=== PATIENT | female | born 1945 ===

== ENCOUNTER 2021-01-05 07:40 | Outpatient (REF) | payer MEDICARE, SELFPAY ==
[2021-01-05 08:54] LABS: Alanine Aminotransferase 18 U/L (0-31); Alkaline Phosphatase 53 U/L (39-117); Anion Gap 13 (12-20); Aspartate Amino Transferase 32 U/L (5-31); Bilirubin Total 0.5 mg/dL (0.0-1.0); Blood Urea Nitrogen 16 mg/dL (9-16); Calcium 9.3 mg/dL (8.4-10.2); Carbon Dioxide 29 mmol/L (22-29); Chloride 104 mmol/L (96-108); Estimated Glomerular Filt Rate > 60; Glucose Random 99 mg/dL (60-115); Potassium 4.5 mmol/L (3.3-5.1); Sodium 141 mmol/L (135-145); Total Protein 7.5 g/dL (6.5-8.0)
[2021-01-05 09:34] LABS: Free T4 (Free Thyroxine) 1.12 ng/dL (0.71-1.85)
[2021-01-05 09:53] LABS: Thyroid Stimulating Hormone 1.78 uIU/mL (0.32-4.0)
== END 2021-01-05 07:41 | disposition home or self-care (01) ==
LOC: HO.LAB 07:40
PROVIDERS: Visit Provider Internal Medicine
DX: E03.9 Hypothyroidism, unspecified (principal)
CPT/HCPCS: 36415; 80053; 84439; 84443

== ENCOUNTER 2022-04-12 08:42 | Outpatient (REF) | payer MEDICARE, SELFPAY ==
[2022-04-12 09:00] LABS: MANUAL DIFF FLAG NO
[2022-04-12 09:42] LABS: Basophils Percent Auto 0.4 % (0-2); Eosinophils Absolute Auto 0.1 X10*3/uL (0.0-0.4); Eosinophils Percent Auto 1.3 % (0-4); Hemoglobin 12.2 g/dl (12.0-16.0); Imm Gran Abs Auto 0.01 X10*3/uL (0.00-0.03); Imm Gran Pct Auto 0.2 % (0.0-0.4); Lymphocytes Absolute Auto 1.5 X10*3/uL (1.2-4.9); Lymphocytes Percent Auto 34.1 % (20-40); Mean Corpuscular Hemoglobin 30.3 pg (27.0-33.0); Mean Corpuscular Volume 91.8 fL (80.0-98.0); Mean Platelet Volume 9.9 fL (9.4-12.3); Monocytes Absolute Auto 0.4 X10*3/uL (0.1-1.2); Monocytes Percent Auto 8.4 % (2-11); Neutrophils Absolute Auto 2.5 x10*3/uL (2.0-8.3); Neutrophils Percent Auto 55.6 % (45-73); Platelet Count 220 X10*3/uL (160-400); Red Blood Count 4.03 X10*6/uL (4.20-5.50); Red Cell Distribution Width 13.1 % (11.0-16.0); White Blood Count 4.5 X10*3/uL (4.8-10.8)
[2022-04-12 10:12] LABS: Alanine Aminotransferase 24 U/L (0-31); Albumin Level 4.2 g/dL (3.5-5.0); Alkaline Phosphatase 56 U/L (39-117); Anion Gap 15 (12-20); Aspartate Amino Transferase 28 U/L (5-31); Bilirubin Total 0.4 mg/dL (0.0-1.0); Blood Urea Nitrogen 14 mg/dL (9-16); Calcium 9.2 mg/dL (8.4-10.2); Carbon Dioxide 29 mmol/L (22-29); Chloride 102 mmol/L (96-108); Cholesterol 241 mg/dL; Estimated Glomerular Filt Rate > 60; Glucose Fasting 108 mg/dL (60-99); HDL Cholesterol 82 mg/dL; LDL Cholesterol Calculated 146 mg/dl; Potassium 4.2 mmol/L (3.3-5.1); Sodium 142 mmol/L (135-145); Total Protein 7.2 g/dL (6.5-8.0); Triglycerides 68 mg/dL
[2022-04-12 10:35] LABS: Free T4 (Free Thyroxine) 1.25 ng/dL (0.71-1.85); Thyroid Stimulating Hormone 2.37 uIU/mL (0.32-4.0); Vitamin D 25-OH Total 47.7 ng/mL (>30)
[2022-04-12 11:04] LABS: Appearance Urine Cloudy; Color Urine Yellow; Glucose Urine UA Negative (Negative); Leukocyte Esterase Urine Negative (Negative); Nitrite Urine Negative (Negative); PH 8.5 (5.0-9.0); Urine Blood Negative (Negative); Urine Ketones Negative (Negative); Urine Protein Negative (Neg-Trace)
== END 2022-04-12 08:43 | disposition home or self-care (01) ==
LOC: HO.LAB 08:42
PROVIDERS: PCP Internal Medicine; Visit Provider Internal Medicine
DX: Z00.00 Encounter for general adult medical examination without abnormal findings (principal); E03.9 Hypothyroidism, unspecified; E55.9 Vitamin D deficiency, unspecified
CPT/HCPCS: 36415; 80053; 80061; 81003; 82306; 84439; 84443; 85025

== ENCOUNTER 2023-04-13 09:08 | Outpatient (REF) | payer MEDICARE, SELFPAY ==
[2023-04-13 09:30] LABS: MANUAL DIFF FLAG NO
[2023-04-13 10:27] LABS: Basophils Percent Auto 0.3 % (0-2); Eosinophils Absolute Auto 0.1 X10*3/uL (0.0-0.4); Eosinophils Percent Auto 1.2 % (0-4); Hematocrit 37.9 % (37.0-47.0); Hemoglobin 12.5 g/dl (12.0-16.0); Imm Gran Abs Auto 0.01 X10*3/uL (0.00-0.03); Imm Gran Pct Auto 0.2 % (0.0-0.4); Lymphocytes Absolute Auto 1.4 X10*3/uL (1.2-4.9); Lymphocytes Percent Auto 24.4 % (20-40); Mean Corpuscular Hemoglobin 30.8 pg (27.0-33.0); Mean Corpuscular Volume 93.3 fL (80.0-98.0); Mean Platelet Volume 10.2 fL (9.4-12.3); Monocytes Absolute Auto 0.4 X10*3/uL (0.1-1.2); Monocytes Percent Auto 7.6 % (2-11); Neutrophils Absolute Auto 3.8 x10*3/uL (2.0-8.3); Neutrophils Percent Auto 66.3 % (45-73); Platelet Count 226 X10*3/uL (160-400); Red Blood Count 4.06 X10*6/uL (4.20-5.50); Red Cell Distribution Width 12.7 % (11.0-16.0); White Blood Count 5.8 X10*3/uL (4.8-10.8)
[2023-04-13 10:51] LABS: Appearance Urine Clear; Color Urine Yellow; Glucose Urine UA Negative (Negative); Leukocyte Esterase Urine Negative (Negative); Nitrite Urine Negative (Negative); Specific Gravity - Urine <= 1.005 (1.005-1.025); Urine Blood Negative (Negative); Urine Ketones Negative (Negative); Urine Protein Negative (Neg-Trace)
[2023-04-13 11:04] LABS: Anion Gap 13 (12-20); Blood Urea Nitrogen 15 mg/dL (9-16); Carbon Dioxide 28 mmol/L (22-29); Chloride 104 mmol/L (96-108); Estimated Glomerular Filt Rate > 60; Glucose Fasting 96 mg/dL (60-99); Potassium 4.1 mmol/L (3.3-5.1); Sodium 141 mmol/L (135-145)
[2023-04-13 11:05] LABS: Alanine Aminotransferase 22 U/L (0-31); Albumin Level 3.9 g/dL (3.5-5.0); Alkaline Phosphatase 53 U/L (39-117); Aspartate Amino Transferase 32 U/L (5-31); Bilirubin Total 0.4 mg/dL (0.0-1.0); Calcium 9.5 mg/dL (8.4-10.2); Cholesterol 187 mg/dL (<200); HDL Cholesterol 75 mg/dL (>40); LDL Cholesterol Calculated 102 mg/dL (<100); Total Protein 7.6 g/dL (6.5-8.0); Triglycerides 54 mg/dL (<150)
[2023-04-13 11:25] LABS: Free T4 (Free Thyroxine) 0.95 ng/dL (0.71-1.85); Thyroid Stimulating Hormone 4.18 uIU/mL (0.32-4.0); Vitamin D 25-OH Total 40.8 ng/mL (>30)
== END 2023-04-13 09:09 | disposition home or self-care (01) ==
LOC: HO.LAB 09:08
PROVIDERS: PCP Internal Medicine; Visit Provider Internal Medicine
DX: I10 Essential (primary) hypertension (principal); E78.00 Pure hypercholesterolemia, unspecified; E03.9 Hypothyroidism, unspecified; E55.9 Vitamin D deficiency, unspecified; R30.0 Dysuria
CPT/HCPCS: 36415; 80053; 80061; 81003; 82306; 84439; 84443; 85025

== ENCOUNTER 2023-04-19 09:24 | Outpatient (AMB) | payer MEDICARE, SELFPAY ==
[2023-04-19 10:02] VITALS: BP 126/80; PULSE 86; O2SAT 98; BMI 16.9
--- NOTE | 2023-04-19 10:02 | A.OFFPC_ITS ---
Vital Signs 04/19/23 10:02 Height 5 ft 2 in Weight 92 lb 6 oz BMI 16.9 BP 126/80 Blood Pressure Location Lt brachial Position Sitting Pulse 86 Pulse Source Pulse Oximeter Pulse Oximetry (%) 98 Oxygen Delivery Method Room Air Intake Visit Reasons: hyperlipidemia, hypothyroidism [employer] Consultant Required: No Accompanied by: Self / Same As Patient Allergies No Known Allergies Allergy (Verified 04/19/23 10:43) Medication List - Last Reconciled 04/19/23 by Tony Myers MD fluticasone propionate 50 mcg/actuation (Flonase Allergy Relief) 1 spray intranasal DAILY PRN 10 days levothyroxine 75 mcg PO DAILY 90 days loratadine 10 mg PO DAILY PRN 90 days Tobacco use date assessed: 04/19/23 Fall risk assessment: No Falls in past year Last assessed Fall Risk: 04/19/23 Dental Screening Dental Screen Date: 04/19/23 Did you have a dental visit in the last 12 months?: Yes Did you have a dental problem in the last 6 months where you did not have access to dental care?: No Was dental information given to patient?: Patient has dentist HPI hyperlipidemia, hypothyroidism HPI Details Patient comes in for her follow up visit States that she feels okay but she's had some cough and congestion symptoms for the past couple of days She denies any fever or sore throat Denies any headaches or dizziness Denies any chest pains, no SOB No nausea/vomiting, no abdominal pain No change in bowel habits noted Needs her Levothyroxine Rx refilled Had her follow up labs done last week - to discuss her results [facility] Medical History Pure hypercholesterolemia Acquired hypothyroidism Surgical History History of cataract surgery (~08/2021) H/O hand surgery Family History Mother No problems noted. Father Arthritis Social History Housing: House Alcohol intake: never Patient Tobacco Use Status: Never used Tobacco e-Cigarette/Vaping Use: Never Used Second Hand Smoke Exposure: No service: No Current occupational status: retired Cognitive needs: No Hearing needs: No Vision needs: Yes Questionnaire PHQ-9 Over the last 2 weeks, how often have you been bothered by any of the following problems? 1. Little interest or pleasure in doing things: not at all 2. Feeling down, depressed, or hopeless: not at all 3. Trouble falling or staying asleep, or sleeping too much: not at all 4. Feeling tired or having little energy: not at all 5. Poor appetite or overeating: not at all 6. Feeling bad about yourself - or that you are a failure or have let yourself or your family down: not at all 7. Trouble concentrating on things, such as reading the newspaper or watching television: not at all 8. Moving or speaking so slowly that other people could have noticed. Or the opposite - being so fidgety or restless that you have been moving around a lot more than usual: not at all 9. Thoughts that you would be better off or of hurting yourself in some way: not at all Total score: 0 Depression Screening Interpretation: Negative 80507 - PHQ-9 Billing: Yes Source: Developed by Drs. Humberto Sanders, Connie Mock, Boone Grossman and colleagues, with an educational percy from [employer]. Thrive Questionnaire Date Thrive assessed: 04/19/23 I am a: Patient What is your living situation today?: I have a steady place to live Within the past 12 months, did the food you bought not last and you didn't have the money to get more?: Never true Within the past 12 months, did you worry whether your food would run out before you got money to buy more?: Never true Do you have trouble paying for medicines?: No Do you have trouble getting transportation to medical appointments?: No Do you have trouble paying your heating and electricity bill?: No Do you have trouble taking care of your child, family member or friend?: No Do you have trouble with day-to-day activities such as bathing, preparing meals, shopping, managing finances, etc.?: No Are you currently unemployed and looking for a job?: No Are you interested in more education?: No Please select the resources that you would like help with: None Currently or been in a relationship where the following occur: no concerns reported AUDIT C Alcohol Use Questionnaire (AUDIT-C) 1. How often do you have a drink containing alcohol?: Never 3. How often do you have six or more drinks on one occasion?: Never Total Score: 0 Score Reviewed/Action Taken: Yes NATHALIE-7 AMB Questionnaire NATHALIE-7 Date NATHALIE - 7 assessed: 04/19/23 Feeling nervous, anxious, or on edge: 0 = Not at all Not being able to stop or control worryin = Not at all Worrying too much about different things: 0 = Not at all Trouble relaxin = Not at all Being so restless that it is hard to sit still: 0 = Not at all Becoming easily annoyed or irritable: 0 = Not at all Feeling afraid as if something awful might happen: 0 = Not at all Total NATHALIE-7 score (0-4 normal; 5-9 mild; 10-14 moderate; 15-21 severe): 0 Source: Developed by Drs. Humberto Sanders, Connie Mock, Boone Grossman and colleagues, with an educational percy from [employer]. Review of Systems Const Denies chills, Denies fatigue, Denies fever(s) and Denies headache(s) ENT Denies dysphagia, Denies dizziness, Denies otalgia, Denies headache(s), Reports nasal congestion (for the past couple of days), Denies odynophagia, Denies sinus pain, Denies sinus pressure and Denies sore throat Card Denies chest pain, Denies palpitations and Denies dyspnea Resp Reports chest congestion (mild), Reports cough (on and off for the past 2 days), Denies excessive phlegm production, Denies pain with cough, Denies dyspnea and Denies wheezing GI Denies abdominal pain, Denies constipation, Denies dysphagia, Denies heartburn, Denies diarrhea, Denies nausea, Denies odynophagia and Denies vomiting Denies difficulty voiding, Denies nocturia and Denies dysuria Neuro Denies dizziness and Denies headache(s) Endo Denies fatigue and Denies palpitations Aller/Immun Denies wheezing Physical exam (Primary Care) Vital Signs: Last Vital Signs Pulse 86 04/19/23 10:02 BP 126/80 04/19/23 10:02 Pulse Ox 98 04/19/23 10:02 Oxygen Delivery Method Room Air 04/19/23 10:02 BMI result Body Mass Index 16.9 Tobacco/Smoking Status: Tobacco use Status Tobacco use date assessed 04/19/23 04/19/23 10:05 Patient Tobacco Use Status Never used Tobacco 04/19/23 10:05 e-Cigarette/Vaping Use Never Used 04/19/23 10:05 PHQ-9: PHQ-9 Score PHQ-9: Total score 0 04/19/23 10:43 Depression Screening Interpretation: Negative Thrive Assessment: Date of Thrive Assessment Date Thrive assessed 04/19/23 04/19/23 10:05 Currently or been in a relationship where the following occur: no concerns reported Const General: no acute distress and alert HENMT Ears: TM's normal bilaterally and EAC's normal Throat: Yes posterior oropharynx normal and Yes tonsils normal (no TP congestion) Neck Neck: Yes no lymphadenopathy and Yes supple Resp Auscultation: clear to auscultation bilaterally, no crackles, no rales, rhonchi (occasional) upper bilaterally and no wheezes Cardio Rate: regular rate Rhythm: regular rhythm Heart sounds: no murmurs GI Palpation (GI): Soft to palpation and nontender Auscultation: normal bowel sounds Skin General skin exam: no rashes or lesions noted Extrem General: Yes no clubbing, cyanosis or edema Results Reviewed Results Reviewed: Laboratory Tests 04/13/23 04/13/23 09:24 09:29 WBC 5.8 Hgb 12.5 Hct 37.9 Plt Count 226 Sodium 141 Potassium 4.1 Creatinine 0.75 Estimated GFR > 60 Fasting Glucose 96 AST 32 H ALT 22 Triglycerides 54 Cholesterol 187 LDL Cholesterol, Calc 102 H HDL Cholesterol 75 25-OH Vitamin D Total 40.8 TSH 4.18 H Free T4 0.95 Urine pH 7.0 Ur Specific [place] <= 1.005 Urine Protein Negative Urine Glucose (UA) Negative Assessment and Plan Assessment & Plan (1) Upper respiratory tract infection: Code(s): J06.9 - Acute upper respiratory infection, unspecified Qualifiers: URI type: unspecified URI Qualified Code(s): J06.9 - Acute upper respiratory infection, unspecified Plan: Most likely viral URI; patient reports that her symptoms are mild and feels that they are starting to clear up gradually and does not think she needs anything at this time other than OTC cough syrup Have advised her to call if her symptoms persist or get worse over the next 1 to 2 weeks and we may need to address them then - have cautioned her that lingering symptoms may turn into a more significant respiratory tract infection like bronchitis or pneumonia so she should call if not feeling better in a week or so (2) Pure hypercholesterolemia: Code(s): E78.00 - Pure hypercholesterolemia, unspecified Plan: Results of her labs done last week reviewed and discussed with patient - advised that her cholesterol numbers have improved significantly from a year ago Reinforced low cholesterol diet Will recheck her fasting lipids and labs again in 6 months for follow up (3) Elevated blood pressure reading in office without diagnosis of hypertension: Code(s): R03.0 - Elevated blood-pressure reading, without diagnosis of hypertension Plan: Patient's blood pressure in the office today is better than previous Patient brought in her BP log today for review - log shows that her systolic BP readings are consistently in the 120 mm range Advised again that she most likely has white coat syndrome and is reminded to just continue monitoring her BP regularly Reinforced low sodium diet (4) Acquired hypothyroidism: Code(s): E03.9 - Hypothyroidism, unspecified Plan: Advised that her TFTs are normal on her recent labs Continue Levothyroxine 75 mcg QD - Rx refilled Will recheck her TFTs in 6 months for follow up (5) Allergic rhinitis: Code(s): J30.9 - Allergic rhinitis, unspecified Qualifiers: Allergic rhinitis trigger: unspecified Allergic rhinitis seasonality: unspecified Qualified Code(s): J30.9 - Allergic rhinitis, unspecified Plan: Continue Fluticasone 50 mcg nasal spray QD PRN and Loratadine 10 mg QD PRN (6) Anxiety: Code(s): F41.9 - Anxiety disorder, unspecified Plan: Patient states that she continues to experience anxiety often - reports feeling very nervous about everything Advised again that she may benefit from a referral for counseling for her anxiety or some Rx that she can take as needed - patient still does not wish to take any Rx at this time but she will call if she changes her mind about this Plan Follow up in 6 months Orders: Orders Complete Blood Count Auto Diff 6 Months I10 - Essential (primary) hypertension Comprehensive [place]. Panel Fast 6 Months E78.00 - Pure hypercholesterolemia, unspecified Lipid Panel 6 Months E78.00 - Pure hypercholesterolemia, unspecified UA CC w/rflx Micro + Cult 6 Months R30.0 - Dysuria Vitamin D 25-OH Total 6 Months E55.9 - Vitamin D deficiency, unspecified Free T4 (Free Thyroxine) 6 Months E03.9 - Hypothyroidism, unspecified Thyroid Stimulating Hormone 6 Months E03.9 - Hypothyroidism, unspecified Medications: Refilled levothyroxine 75 mcg PO DAILY 90 days 90 tabs 1RF E03.9 - Hypothyroidism, unspecified Coding Level of Care Code Est Pt Level 4 (50807) Diagnoses Upper respiratory tract infection, unspecified type J06.9 URI type: unspecified URI Pure hypercholesterolemia E78.00 Elevated blood pressure reading in office without diagnosis of hypertension R03.0 Acquired hypothyroidism E03.9 Allergic rhinitis, unspecified seasonality, unspecified trigger J30.9 Allergic rhinitis trigger: unspecified Allergic rhinitis seasonality: unspecified Anxiety F41.9
== END 2023-04-19 10:48 | disposition home or self-care (01) ==
PROVIDERS: Visit Provider Internal Medicine
DX: J06.9 Acute upper respiratory infection, unspecified (principal); E78.00 Pure hypercholesterolemia, unspecified; R03.0 Elevated blood-pressure reading, without diagnosis of hypertension; E03.9 Hypothyroidism, unspecified; J30.9 Allergic rhinitis, unspecified; F41.9 Anxiety disorder, unspecified
CPT/HCPCS: 99214

== ENCOUNTER 2023-11-21 08:34 | Outpatient (REF) | payer MEDICARE, SELFPAY ==
[2023-11-21 08:52] LABS: MANUAL DIFF FLAG NO
[2023-11-21 09:13] LABS: Basophils Percent Auto 0.2 % (0-2); Eosinophils Absolute Auto 0.1 X10*3/uL (0.0-0.4); Eosinophils Percent Auto 1.4 % (0-4); Hematocrit 35.9 % (37.0-47.0); Hemoglobin 12.1 g/dl (12.0-16.0); Imm Gran Abs Auto 0.02 X10*3/uL (0.00-0.03); Imm Gran Pct Auto 0.4 % (0.0-0.4); Lymphocytes Absolute Auto 1.5 X10*3/uL (1.2-4.9); Lymphocytes Percent Auto 27.7 % (20-40); Mean Corpuscular HGB Conc 33.7 g/dl (31.0-35.0); Mean Corpuscular Hemoglobin 30.6 pg (27.0-33.0); Mean Corpuscular Volume 90.7 fL (80.0-98.0); Mean Platelet Volume 9.8 fL (9.4-12.3); Monocytes Absolute Auto 0.5 X10*3/uL (0.1-1.2); Monocytes Percent Auto 9.6 % (2-11); Neutrophils Absolute Auto 3.4 x10*3/uL (2.0-8.3); Neutrophils Percent Auto 60.7 % (45-73); Platelet Count 230 X10*3/uL (160-400); Red Blood Count 3.96 X10*6/uL (4.20-5.50); Red Cell Distribution Width 14.6 % (11.0-16.0); White Blood Count 5.5 X10*3/uL (4.8-10.8)
[2023-11-21 09:54] LABS: Alanine Aminotransferase 29 U/L (0-31); Albumin Level 3.7 g/dL (3.5-5.0); Alkaline Phosphatase 66 U/L (39-117); Anion Gap 12 (12-20); Aspartate Amino Transferase 30 U/L (5-31); Bilirubin Total 0.2 mg/dL (0.0-1.0); Blood Urea Nitrogen 17 mg/dL (9-16); Calcium 9.4 mg/dL (8.4-10.2); Carbon Dioxide 30 mmol/L (22-29); Chloride 103 mmol/L (96-108); Cholesterol 177 mg/dL (<200); Estimated Glomerular Filt Rate > 60; Glucose Fasting 111 mg/dL (60-99); HDL Cholesterol 79 mg/dL (>40); LDL Cholesterol Calculated 90 mg/dL (<100); Sodium 141 mmol/L (135-145); Total Protein 7.6 g/dL (6.5-8.0); Triglycerides 44 mg/dL (<150)
[2023-11-21 10:12] LABS: Appearance Urine Clear; Color Urine Yellow; Glucose Urine UA Negative (Negative); Leukocyte Esterase Urine Negative (Negative); Nitrite Urine Negative (Negative); PH 7.5 (5.0-9.0); Urine Blood Negative (Negative); Urine Ketones Negative (Negative); Urine Protein Negative (Neg-Trace)
[2023-11-21 10:13] LABS: Free T4 (Free Thyroxine) 0.83 ng/dL (0.71-1.85); Thyroid Stimulating Hormone 3.03 uIU/mL (0.32-4.0); Vitamin D 25-OH Total 39.9 ng/mL (>30)
== END 2023-11-21 08:35 | disposition home or self-care (01) ==
LOC: HO.LAB 08:34
PROVIDERS: PCP Internal Medicine; Visit Provider Internal Medicine
DX: E03.9 Hypothyroidism, unspecified (principal); E78.00 Pure hypercholesterolemia, unspecified; I10 Essential (primary) hypertension; R30.0 Dysuria; E55.9 Vitamin D deficiency, unspecified
CPT/HCPCS: 36415; 80053; 80061; 81003; 82306; 84439; 84443; 85025

== ENCOUNTER 2024-02-21 12:01 | Outpatient (AMB) | payer MEDICARE, SELFPAY ==
[2024-02-21 12:53] VITALS: BP 164/78; PULSE 88; O2SAT 97; BMI 17.7
--- NOTE | 2024-02-21 12:53 | A.OFFPC_ITS ---
Vital Signs 02/21/24 12:53 02/21/24 13:03 Height 5 ft 2 in Weight 97 lb BMI 17.7 BP 164/78 H 114/75 Blood Pressure Location Lt brachial Lt brachial Position Sitting Sitting Pulse 88 Pulse Source Pulse Oximeter Pulse Oximetry (%) 97 Oxygen Delivery Method Room Air Comment Home BP: 114/70 Pulse: 55 this morning. 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 Accompanied by: Self / Same As Patient Allergies No Known Allergies Allergy (Verified 04/19/23 10:43) Tobacco use date assessed: 04/19/23 Dental Screening Dental Screen Date: 04/19/23 HPI 6mof\u HPI Details Patient comes in today for her follow up visit - was last seen in [facility]2023 Patient states that she feels okay She denies any headaches or dizziness Denies any chest pains, no SOB No nausea/vomiting, no abdominal pain No change in bowel habits noted She had her follow up labs done a couple of months ago - to discuss her results [facility] Medical History (Updated 02/21/24 @ 13:06 by Tony Myers MD) Pure hypercholesterolemia Acquired hypothyroidism Surgical History History of cataract surgery (~08/2021) H/O hand surgery Family History Mother No problems noted. Father Arthritis Social History Housing: House Alcohol intake: never Patient Tobacco Use Status: Never used Tobacco e-Cigarette/Vaping Use: Never Used Second Hand Smoke Exposure: No service: No Current occupational status: retired Cognitive needs: No Hearing needs: No Vision needs: Yes Questionnaire PHQ-9 Over the last 2 weeks, how often have you been bothered by any of the following problems? 1. Little interest or pleasure in doing things: not at all 2. Feeling down, depressed, or hopeless: not at all 3. Trouble falling or staying asleep, or sleeping too much: not at all 4. Feeling tired or having little energy: not at all 5. Poor appetite or overeating: not at all 6. Feeling bad about yourself - or that you are a failure or have let yourself or your family down: not at all 7. Trouble concentrating on things, such as reading the newspaper or watching television: not at all 8. Moving or speaking so slowly that other people could have noticed. Or the opposite - being so fidgety or restless that you have been moving around a lot m ore than usual: not at all 9. Thoughts that you would be better off or of hurting yourself in some way: not at all Total score: 0 Depression Screening Interpretation: Negative Depression Screening Done: Yes [id number] - PHQ-9 Billing: Yes Source: Developed by Drs. Humberto Sanders, Connie Mock, Boone Grossman and colleagues, with an educational percy from [employer]. Thrive Questionnaire Date Thrive assessed: 02/21/24 I am a: Patient What is your living situation today?: I have a steady place to live Within the past 12 months, did the food you bought not last and you didn't have the money to get more?: Never true Within the past 12 months, did you worry whether your food would run out before you got money to buy more?: Never true Do you have trouble paying for medicines?: No Do you have trouble getting transportation to medical appointments?: No Do you have trouble paying your heating and electricity bill?: No Do you have trouble taking care of your child, family member or friend?: No Do you have trouble with day-to-day activities such as bathing, preparing meals, shopping, managing finances, etc.?: No Are you currently unemployed and looking for a job?: No Are you interested in more education?: No Please select the resources that you would like help with: None Currently or been in a relationship where the following occur: No concerns reported THRIVE Score: 0 AUDIT C Alcohol Use Questionnaire (AUDIT-C) 1. How often do you have a drink containing alcohol?: Never 3. How often do you have six or more drinks on one occasion?: Never Total Score: 0 Score Reviewed/Action Taken: Yes NATHALIE-7 AMB Questionnaire NATHALIE-7 Date NATHALIE - 7 assessed: 02/21/24 Feeling nervous, anxious, or on edge: 0 = Not at all Not being able to stop or control worryin = Not at all Worrying too much about different things: 0 = Not at all Trouble relaxin = Not at all Being so restless that it is hard to sit still: 0 = Not at all Becoming easily annoyed or irritable: 0 = Not at all Feeling afraid as if something awful might happen: 0 = Not at all Total NATHALIE-7 score (0-4 normal; 5-9 mild; 10-14 moderate; 15-21 severe): 0 Source: Developed by Drs. Humberto Sanders, Connie Mock, Boone Grossman and colleagues, with an educational percy from [employer]. NATHALIE-7 Assessment Billing NATHALIE-7 Assessment Tool: NATHALIE-7 Assessment 11598 Review of Systems Const Denies chills, Denies fatigue, Denies fever(s) and Denies headache(s) ENT Denies dysphagia, Denies dizziness, Denies otalgia, Denies headache(s), Denies neck pain, Denies odynophagia and Denies sore throat Card Denies chest pain, Denies palpitations and Denies dyspnea Resp Denies chest congestion, Denies cough, Denies dyspnea and Denies wheezing GI Denies abdominal pain, Denies constipation, Denies dysphagia, Denies heartburn, Denies diarrhea, Denies nausea, Denies odynophagia and Denies vomiting Denies difficulty voiding, Denies nocturia, Denies dysuria and Denies urinary urgency Musc Denies back pain and Denies neck pain Skin/Breast Denies rash Neuro Denies dizziness and Denies headache(s) Endo Denies fatigue and Denies palpitations Aller/Immun Denies wheezing Physical exam (Primary Care) Vital Signs: Last Vital Signs Pulse 88 02/21/24 12:53 BP 114/75 02/21/24 13:03 Pulse Ox 97 02/21/24 12:53 Oxygen Delivery Method Room Air 02/21/24 12:53 BMI result Body Mass Index 17.7 Tobacco/Smoking Status: Tobacco use Status Tobacco use date assessed 04/19/23 02/21/24 12:59 Patient Tobacco Use Status Never used Tobacco 02/21/24 12:59 e-Cigarette/Vaping Use Never Used 02/21/24 12:59 PHQ-9: PHQ-9 Score PHQ-9: Total score 0 02/21/24 13:07 Depression Screening Interpretation: Negative Thrive Assessment: Date of Thrive Assessment Date Thrive assessed 02/21/24 02/21/24 12:59 Currently or been in a relationship where the following occur: No concerns reported Const General: no acute distress and alert HENMT Ears: TM's normal bilaterally and EAC's normal Throat: Yes posterior oropharynx normal and Yes tonsils normal (no TP congest ion) Neck Neck: Yes no lymphadenopathy and Yes supple Thyroid: lateral enlargement on the right and nontender Resp Auscultation: clear to auscultation bilaterally, no crackles, no rales and no wheezes Cardio Rate: regular rate Rhythm: regular rhythm Heart sounds: no murmurs GI Palpation (GI): Soft to palpation and nontender Auscultation: normal bowel sounds General: Yes no CVA tenderness Back/Spine/Pelvis Back: no CVA tenderness Thoracic/Lumbar Spine: No lumbar spinal tenderness Skin General skin exam: no rashes or lesions noted Extrem General: Yes no clubbing, cyanosis or edema Results Reviewed Results Reviewed: Laboratory Tests 11/21/23 11/21/23 08:51 09:27 WBC 5.5 Hgb 12.1 Hct 35.9 L Plt Count 230 Sodium 141 Potassium 4.0 Creatinine 0.70 Estimated GFR > 60 Fasting Glucose 111 H Calcium 9.4 AST 30 ALT 29 Triglycerides 44 Cholesterol 177 LDL Cholesterol, Calc 90 HDL Cholesterol 79 25-OH Vitamin D Total 39.9 TSH 3.03 Free T4 0.83 Ur Specific [place] 1.010 Urine Protein Negative Urine Glucose (UA) Negative Urine Blood Negative Urine Nitrite Negative Ur Leukocyte Esterase Negative Assessment and Plan Assessment & Plan (1) Pure hypercholesterolemia: Code(s): E78.00 - Pure hypercholesterolemia, unspecified Plan: Results of her labs done back in November 2023 reviewed and discussed with patient - advised that her cholesterol numbers have improved further from last year Reinforced low cholesterol diet (2) Elevated blood pressure reading in office without diagnosis of hypertension: Code(s): R03.0 - Elevated blood-pressure reading, without diagnosis of hypertension Plan: Patient's blood pressure in the office today is again elevated at 164/78 mm but patient states that her blood pressure earlier this morning was at 114/75 just before she left for the office Her BP log in the past has showed that her systolic BP readings are consistently in the 120 mm range Advised again that she most likely has white coat syndrome and is reminded to just continue monitoring her BP regularly Reinforced low sodium diet (3) Acquired hypothyroidism: Code(s): E03.9 - Hypothyroidism, unspecified Plan: She is advised that her TFTs are normal on her recent labs Continue Levothyroxine 75 mcg QD (4) Enlarged thyroid gland: Code(s): E04.9 - Nontoxic goiter, unspecified Plan: Her right thyroid gland was noted to be diffusely enlarged on exam today although it is non-tender on palpation Will send her for thyroid US for further evaluation (5) Allergic rhinitis: Code(s): J30.9 - Allergic rhinitis, unspecified Qualifiers: Allergic rhinitis seasonality: unspecified Allergic rhinitis trigger: unspecified Qualified Code(s): J30.9 - Allergic rhinitis, unspecified Plan: Continue Fluticasone 50 mcg nasal spray QD PRN and Loratadine 10 mg QD PRN (6) Anxiety: Code(s): F41.9 - Anxiety disorder, unspecified Plan: Patient states that she continues to experience anxiety often - reports feeling very nervous about everything Advised again that she may benefit from a referral for counseling for her anxiety or some Rx that she can take as needed - patient still does not wish to take any Rx at this time but she will call if she changes her mind about this Plan Follow up in 6 months Orders: Orders US thyroid Today E04.9 - Nontoxic goiter, unspecified Coding Level of Care Code Est Pt Level 4 (14461) Diagnoses Pure hypercholesterolemia E78.00 Elevated blood pressure reading in office without diagnosis of hypertension R03.0 Acquired hypothyroidism E03.9 Enlarged thyroid gland E04.9 Allergic rhinitis, unspecified seasonality, unspecified trigger J30.9 Allergic rhinitis seasonality: unspecified Allergic rhinitis trigger: unspecified Anxiety F41.9 Additional Codes NATHALIE-7 Assessment Billing - NATHALIE-7 Assessment Tool: NATHALIE-7 Assessment [id number] ([id number])
[2024-02-21 13:03] VITALS: BP 114/75
== END 2024-02-21 13:12 | disposition home or self-care (01) ==
PROVIDERS: PCP Internal Medicine; Visit Provider Internal Medicine
DX: E78.00 Pure hypercholesterolemia, unspecified (principal); R03.0 Elevated blood-pressure reading, without diagnosis of hypertension; E03.9 Hypothyroidism, unspecified; E04.9 Nontoxic goiter, unspecified; J30.9 Allergic rhinitis, unspecified; F41.9 Anxiety disorder, unspecified
CPT/HCPCS: 99214

== ENCOUNTER 2024-10-21 10:11 | Outpatient (REF) | payer MEDICARE, SELFPAY ==
--- NOTE | ~2024-10-21 | US_ITS ---
EXAMINATION: US THYROID HISTORY: E04.9 - Nontoxic goiter, unspecified TECHNIQUE: Real-time grayscale ultrasound imaging was performed and images were reviewed. COMPARISON: There are no prior studies for comparison. FINDINGS: SIZE: The right thyroid lobe measures 8.6 x 4.6 x 4.1 cm. The left thyroid lobe measures 4.4 x 2.3 x 1.8 cm. The isthmus measures 7 mm. FLOW: Flow to the gland is increased on the right. ECHOGENICITY: The echotexture of the gland is heterogeneous. NODULES: No discrete nodules are identified. US/US thyroid IMPRESSION: Findings consistent with multinodular goiter. No discrete nodule is identified. ACR TI-RADS Guidelines TR1 (0 points): Benign, No follow-up or biopsy required TR2 (2 points): Not Suspicious, No biopsy or follow up indicated TR3 (3 points): Mildly Suspicious, FNA if >= 2.5 cm, Follow if >= 1.5 cm TR4 (4-6 points): Moderately Suspicious, FNA if >= 1.5 cm, Follow if >= 1.0 cm TR5 (>=7 points): Highly Suspicious, FNA if >= 1.0 cm, Follow if >= 0.5 cm Electronically signed by: Humberto Matias MD 10/21/2024 11:51 AM EDT
== END 2024-10-21 10:12 | disposition home or self-care (01) ==
LOC: HO.US 10:11
PROVIDERS: PCP Internal Medicine; Visit Provider Internal Medicine
DX: E04.9 Nontoxic goiter, unspecified (principal)
CPT/HCPCS: 76536

== ENCOUNTER → 2024-10-21 10:13 | Outpatient (BNV) | payer MEDICARE, SELFPAY | PROVIDERS: PCP Internal Medicine; Visit Provider Radiology Diagnostic Radiology | DX: E04.9 Nontoxic goiter, unspecified (principal) | CPT/HCPCS: 76536 ==

== ENCOUNTER 2024-10-22 07:55 | Outpatient (REF) | payer MEDICARE, SELFPAY ==
[2024-10-22 09:33] LABS: Free T4 (Free Thyroxine) 0.99 ng/dL (0.71-1.85); Thyroid Stimulating Hormone 4.87 uIU/mL (0.32-4.0)
== END 2024-10-22 07:56 | disposition home or self-care (01) ==
LOC: HO.LAB 07:55
PROVIDERS: PCP Internal Medicine; Visit Provider Internal Medicine
DX: E03.9 Hypothyroidism, unspecified (principal)
CPT/HCPCS: 36415; 84439; 84443

== ENCOUNTER 2024-10-31 14:06 | Outpatient (AMB) | payer MEDICARE, SELFPAY ==
[2024-10-31 14:18] VITALS: BP 162/62; PULSE 84; TEMP 36.2; O2SAT 96; BMI 18.3
--- NOTE | 2024-10-31 14:18 | A.OFFPC_ITS ---
Vital Signs 10/31/24 14:18 10/31/24 15:03 Height 5 ft 2 in Weight 100 lb 2 oz BMI 18.3 BP 162/62 H 150/92 H Blood Pressure Location Lt brachial Lt brachial Position Sitting Sitting Pulse 84 Pulse Source Pulse Oximeter Temp 97.1 F Temp Source Temporal Artery Scan Pulse Oximetry (%) 96 Oxygen Delivery Method Room Air Intake Visit Reasons: 4 month f/u Senior Mobile Application Developer Required: No Accompanied by: Self / Same As Patient Allergies No Known Allergies Allergy (Verified 10/31/24 15:01) Medication List - Last Reconciled 10/31/24 by Tony Myers MD fluticasone propionate 50 mcg/actuation (Flonase Allergy Relief) 1 spray intranasal DAILY PRN 10 days levothyroxine 75 mcg PO DAILY 90 days loratadine 10 mg PO DAILY PRN 90 days Tobacco use date assessed: 10/31/24 Fall risk assessment: No Falls in past year Last assessed Fall Risk: 10/31/24 Dental Screening Dental Screen Date: 10/31/24 Did you have a dental visit in the last 12 months?: Yes Did you have a dental problem in the last 6 months where you did not have access to dental care?: No Was dental information given to patient?: Patient has dentist HPI 4 month f/u HPI Details Patient comes in today for her follow-up visit States that she feels okay Her blood pressure is currently elevated but she reports that her blood pressure at home was much better around 120/70 earlier this morning States that she has noticed that her blood pressure has been slightly higher at times and thinks that this is mostly due to stress as she reports experiencing a lot of stress at home lately, especially with her 's multiple and declining medical issues She denies any headaches or dizziness Denies any chest pains, no shortness of breath No nausea/vomiting, no abdominal pain No change in bowel habits noted - The patient is an 79-year-old female p resenting with hypertension management and thyroid evaluation. - Regular home blood pressure monitoring shows 120/70; occasional hypertension episodes noted. - Experiences stress related to family m atters. - Thyroid enlargement (goiter) noted; ul trasound last performed on October 21. - Normal thyroid blood test results; req uires ongoing monitoring for thyroid enlargement. - Concerns regarding family dynamics devin ding to stress. - No reported headache, dizziness, or ch est pain; cramps in legs present. [facility] Medical History (Updated 11/01/24 @ 06:24 by Tony Myers MD) Pure hypercholesterolemia Acquired hypothyroidism Surgical History History of cataract surgery (~08/2021) H/O hand surgery Family History Mother No problems noted. Father Arthritis Social History Housing: House Alcohol intake: never Patient Tobacco Use Status: Never used Tobacco e-Cigarette/Vaping Use: Never Used Second Hand Smoke Exposure: No service: No Current occupational status: retired Cognitive needs: No Hearing needs: No Vision needs: Yes Questionnaire PHQ-9 Over the last 2 weeks, how often have you been bothered by any of the following problems? 1. Little interest or pleasure in doing things: not at all 2. Feeling down, depressed, or hopeless: not at all 3. Trouble falling or staying asleep, or sleeping too much: not at all 4. Feeling tired or having little energy: not at all 5. Poor appetite or overeating: not at all 6. Feeling bad about yourself - or that you are a failure or have let yourself or your family down: not at all 7. Trouble concentrating on things, such as reading the newspaper or watching television: not at all 8. Moving or speaking so slowly that other people could have noticed. Or the opposite - being so fidgety or restless that you have been moving around a lot more than usual: not at all 9. Thoughts that you would be better off or of hurting yourself in some way: not at all Total score: 0 Depression Screening Interpretation: Negative Depression Screening Done: Yes 13357 - PHQ-9 Billing: Yes Source: Developed by Drs. Humberto Sanders, Connie Mock, Boone Grossman and colleagues, with an educational percy from [employer]. Thrive Questionnaire Date Thrive assessed: 10/31/24 I am a: Patient What is your living situation today?: I have a steady place to live Within the past 12 months, did the food you bought not last and you didn't have the money to get more?: Never true Within the past 12 months, did you worry whether your food would run out before you got money to buy more?: Never true Do you have trouble paying for medicines?: No Do you have trouble getting transportation to medical appointments?: No Do you have trouble paying your heating and electricity bill?: No Do you have trouble taking care of your child, family member or friend?: No Do you have trouble with day-to-day activities such as bathing, preparing meals, shopping, managing finances, etc.?: No Are you currently unemployed and looking for a job?: No Are you interested in more education?: No Please select the resources that you would like help with: None Currently or been in a relationship where the following occur: No concerns reported THRIVE Score: 0 AUDIT C Alcohol Use Questionnaire (AUDIT-C) 1. How often do you have a drink containing alcohol?: Never 3. How often do you have six or more drinks on one occasion?: Never Total Score: 0 Score Reviewed/Action Taken: Yes NATHALIE-7 AMB Questionnaire NATHALIE-7 Date NATHALIE - 7 assessed: 10/31/24 Feeling nervous, anxious, or on edge: 0 = Not at all Not being able to stop or control worryin = Not at all Worrying too much about different things: 0 = Not at all Trouble relaxin = Not at all Being so restless that it is hard to sit still: 0 = Not at all Becoming easily annoyed or irritable: 0 = Not at all Feeling afraid as if something awful might happen: 0 = Not at all Total NATHALIE-7 score (0-4 normal; 5-9 mild; 10-14 moderate; 15-21 severe): 0 Source: Developed by Drs. Humberto Sanders, Connie Mock, Boone Grossman and colleagues, with an educational percy from [employer]. NATHALIE-7 Assessment Billing NATHALIE-7 Assessment Tool: NATHALIE-7 Assessment 22333 Review of Systems Const Denies chills, Denies fatigue, Denies fever(s) and Denies headache(s) ENT Denies dysphagia, Denies dizziness, Denies otalgia, Denies headache(s), Denies neck pain, Denies odynophagia and Denies sore throat Card Denies chest pain, Denies palpitations and Denies dyspnea Resp Denies chest congestion, Denies cough and Denies dyspnea GI Denies abdominal pain, Denies constipation, Denies dysphagia, Denies heartburn, Denies diarrhea, Denies nausea, Denies odynophagia and Denies vomiting Denies difficulty voiding, Denies nocturia, Denies dysuria and Denies urinary urgency Musc Denies back pain, Reports muscle cramps (in both legs, especially at night) and Denies neck pain Skin/Breast Denies rash Neuro Denies dizziness and Denies headache(s) Endo Denies fatigue and Denies palpitations Physical exam (Primary Care) Vital Signs: Last Vital Signs Temp 97.1 F 10/31/24 14:18 Pulse 84 10/31/24 14:18 BP 150/92 H 10/31/24 15:03 Pulse Ox 96 10/31/24 14:18 Oxygen Delivery Method Room Air 10/31/24 14:18 BMI result Body Mass Index 18.3 Tobacco/Smoking Status: Tobacco use Status Tobacco use date assessed 10/31/24 10/31/24 14:35 Patient Tobacco Use Status Never used Tobacco 10/31/24 14:18 e-Cigarette/Vaping Use Never Used 10/31/24 14:18 PHQ-9: PHQ-9 Score PHQ-9: Total score 0 10/31/24 15:03 Depression Screening Interpretation: Negative Thrive Assessment: Date of Thrive Assessment Date Thrive assessed 10/31/24 10/31/24 14:35 Currently or been in a relationship where the following occur: No concerns reported Const General: no acute distress and alert HENMT Ears: TM's normal bilaterally and EAC's normal Throat: Yes posterior oropharynx normal and Yes tonsils normal (no TP congestion) Neck Neck: Yes supple and No lymphadenopathy Thyroid: lateral enlargement on the right and nontender Resp Auscultation: clear to auscultation bilaterally, no crackles, no rales and no wheezes Cardio Rate: regular rate Rhythm: regular rhythm Heart sounds: no murmurs GI Palpation (GI): Soft to palpation and nontender Auscultation: normal bowel sounds General: Yes no CVA tenderness Back/Spine/Pelvis Back: no CVA tenderness Thoracic/Lumbar Spine: No lumbar spinal tenderness Skin Rashes: no rashes Extrem General: Yes no clubbing, cyanosis or edema Results Reviewed Results Reviewed: Laboratory Tests 10/22/24 08:07 TSH 4.87 H Free T4 0.99 Coding Level of Care Code Est Pt Level 4 (88113) Diagnoses Multinodular goiter (nontoxic) E04.2 Acquired hypothyroidism E03.9 Pure hypercholesterolemia E78.00 Elevated blood pressure reading in office without diagnosis of hypertension R03.0 Leg cramping R25.2 Allergic rhinitis, unspecified seasonality, unspecified trigger J30.9 Allergic rhinitis trigger: unspecified Allergic rhinitis seasonality: unspecified Anxiety F41.9 Additional Codes NATHALIE-7 Assessment Billing - NATHALIE-7 Assessment Tool: NATHALIE-7 Assessment 28333 ([id number]) PHQ-9 - 44111 - PHQ-9 Billing: Yes ([id number]) Assessment & Plan Assessment & Plan (1) Multinodular goiter (nontoxic): Code(s): E04.2 - Nontoxic multinodular goiter Category: Medical Plan: Thyroid ultrasound done last week on 10/21/2024 reveal findings consistent with multinodular goiter with no discrete nodules identified Will refer patient to endocrinology for further evaluation and management (2) Acquired hypothyroidism: Code(s): E03.9 - Hypothyroidism, unspecified Category: Medical Plan: Her TSH was slightly elevated on her labs done last week; free T4 was normal Patient is clinically euthyroid Continue Levothyroxine 75 mcg QD - Rx refilled Will recheck her TFTs in 6 months for follow up (3) Pure hypercholesterolemia: Code(s): E78.00 - Pure hypercholesterolemia, unspecified Category: Medical Plan: Reinforced low cholesterol diet Recheck her labs and fasting lipids in 6 months for follow-up (4) Elevated blood pressure reading in office without diagnosis of hypertension: Code(s): R03.0 - Elevated blood-pressure reading, without diagnosis of hypertension Category: Medical Plan: Patient's blood pressure in the office today is again elevated at 162/62 mm but patient states that her blood pressure earlier this morning was at 120/70 just before she left for the office Her BP log in the past has showed that her systolic BP readings are consistently in the 120 mm range She is again advised that she most likely has white coat syndrome and is reminded to continue monitoring her BP regularly Reinforced low sodium diet (5) Leg cramping: Code(s): R25.2 - Cramp and spasm Category: Medical Plan: Will start patient on a trial of Magnesium Oxide 400 mg QD (6) Allergic rhinitis: Code(s): J30.9 - Allergic rhinitis, unspecified Category: Medical Qualifiers: Allergic rhinitis trigger: unspecified Allergic rhinitis seasonality: unspecified Qualified Code(s): J30.9 - Allergic rhinitis, unspecified Plan: Continue Fluticasone 50 mcg nasal spray QD PRN and Loratadine 10 mg QD PRN (7) Anxiety: Code(s): F41.9 - Anxiety disorder, unspecified Category: Medical Plan: Patient states that she continues to experience anxiety often, with increased stress at home Advised again that she may benefit from a referral for counseling for her anxiety or some Rx that she can take as needed - patient still does not wish to take any Rx at this time but she will call if she changes her mind about this Plan Follow up in 6 months Orders: Orders Lipid Panel 6 Months E78.00 - Pure hypercholesterolemia, unspecified Free T4 (Free Thyroxine) 6 Months E03.9 - Hypothyroidism, unspecified Hemoglobin A1c 6 Months R73.01 - Impaired fasting glucose Complete Blood Count Auto Diff 6 Months D64.9 - Anemia, unspecified Comprehensive [place]. Panel Fast 6 Months E78.00 - Pure hypercholesterolemia, unspecified UA CC w/rflx Micro + Cult 6 Months R30.0 - Dysuria Thyroid Stimulating Hormone 6 Months E03.9 - Hypothyroidism, unspecified Vitamin D 25-OH Total 6 Months E55.9 - Vitamin D deficiency, unspecified Vitamin B12 and Folate 6 Months E53.8 - Deficiency of other specified B group vitamins Referrals Endocrinology Referral E04.2 - Nontoxic multinodular goiter Medications: New magnesium oxide (MagOx) 400 mg PO DAILY 90 days 90 tabs 0RF Refilled levothyroxine 75 mcg PO DAILY 90 days 90 tabs 1RF E03.9 - Hypothyroidism, unspecified
[2024-10-31 15:03] VITALS: BP 150/92
== END 2024-10-31 15:13 | disposition home or self-care (01) ==
LOC: HO.HMCH 14:07
PROVIDERS: PCP Internal Medicine; Visit Provider Internal Medicine
DX: E04.2 Nontoxic multinodular goiter (principal); E03.9 Hypothyroidism, unspecified; E78.00 Pure hypercholesterolemia, unspecified; R03.0 Elevated blood-pressure reading, without diagnosis of hypertension; R25.2 Cramp and spasm; J30.9 Allergic rhinitis, unspecified; F41.9 Anxiety disorder, unspecified

== ENCOUNTER → 2024-10-31 14:06 | Outpatient (BNVA) | payer MEDICARE, SELFPAY | PROVIDERS: PCP Internal Medicine; Visit Provider Internal Medicine | DX: E04.2 Nontoxic multinodular goiter (principal); E03.9 Hypothyroidism, unspecified; E78.00 Pure hypercholesterolemia, unspecified; R03.0 Elevated blood-pressure reading, without diagnosis of hypertension; R25.2 Cramp and spasm; J30.9 Allergic rhinitis, unspecified; F41.9 Anxiety disorder, unspecified | CPT/HCPCS: 96127; 99212 ==

== ENCOUNTER 2025-03-30 09:28 | Outpatient (AMB) | payer MEDICARE, SELFPAY ==
[2025-03-30 09:30] VITALS: BP 196/94; PULSE 92; O2SAT 98; BMI 18.2
--- NOTE | 2025-03-30 09:30 | MHC.OFFVIS ---
Vital Signs 03/30/25 09:30 Height 5 ft 2 in Weight 99 lb 10.383 oz BMI 18.2 BP 196/94 H Blood Pressure Location Lt brachial Position Sitting Pulse 92 Pulse Source Pulse Oximeter Pulse Oximetry (%) 98 Oxygen Delivery Method Room Air Intake Visit Reasons: Nontoxic multinodular goiter Intake Note: New patient present today for Nontoxic multinodular goiter office visit. Dead Mail Checker Required: No Accompanied by: Self / Same As Patient Allergies No Known Allergies Allergy (Verified 03/30/25 09:34) Medication List - Last Reconciled 03/30/25 by Marta Washington MD fluticasone propionate 50 mcg/actuation (Flonase Allergy Relief) 1 spray intranasal DAILY PRN 10 days levothyroxine 75 mcg PO DAILY 90 days loratadine 10 mg PO DAILY PRN 90 days magnesium oxide (MagOx) 400 mg PO DAILY 90 days HPI Comments Details: 79-year-old female here today for initial evaluation of multinodular goiter. Thinks she was originally diagnosed 10 years ago? doesnt think she has ever had FNA. Ultrasound thyroid done 10/21/2024 showed the right side lobe is much larger than the left. The gland is heterogenous. Increased vascularity on the right. While the report does not identify any discrete nodules, and I look at the images myself she has multiple nodules on the right side, mostly almost a conglomerate of multiple nodules. Also has a history of hypothyroidism, currently on levothyroxine 75 mcg daily. Last TSH 10/22/2024 at 4.87, mildly elevated, normal free T4 0.99. Patient currently denies heat or cold intolerance, diarrhea or constipation, hair loss, palpitation, anxiety, weight changes, mood changes, low energy, changes in appearance of eyes or vision changes, tremors, increased diaphoresis or dry skin. ? Patient denies any difficulty swallowing, pain on swallowing or voice changes or difficulty breathing. Patient denies any history of childhood neck radiation. Denies having ever used lithium, amiodarone or biotin supplements. Patient denies any family history of thyroid cancer or thyroid disease. Physical exam General: sitting comfortably in no acute distress HEENT: normocephalic/atraumatic Neck: supple, right 3 cm enlarged thyroid right thyroid nodule Cardiac: normal heart sounds Pulm: normal breath sounds B/L, no added breath sounds Abd: not distended, no tenderness Extremities: no edema, no signs of myxedema Neuro: AAO x3, Speech: normal, no facial droop, moving all 4 extremities Laboratory Tests 11/21/23 10/22/24 08:51 08:07 TSH 3.03 4.87 H Free T4 0.83 0.99 EXAMINATION: US THYROID 10/30/2024 HISTORY: E04.9 - Nontoxic goiter, unspecified TECHNIQUE: Real-time grayscale ultrasound imaging was performed and images were reviewed. COMPARISON: There are no prior studies for comparison. FINDINGS: SIZE: The right thyroid lobe measures 8.6 x 4.6 x 4.1 cm. The left thyroid lobe measures 4.4 x 2.3 x 1.8 cm. The isthmus measures 7 mm. FLOW: Flow to the gland is increased on the right. ECHOGENICITY: The echotexture of the gland is heterogeneous. NODULES: No discrete nodules are identified. US/US thyroid IMPRESSION: Findings consistent with multinodular goiter. No discrete nodule is identified. [facility] Medical History (Updated 11/01/24 @ 06:24 by Tony Myers MD) Pure hypercholesterolemia Acquired hypothyroidism Surgical History History of cataract surgery (~08/2021) H/O hand surgery Family History Mother No problems noted. Father Arthritis Social History Housing: House Alcohol intake: never Patient Tobacco Use Status: Never used Tobacco e-Cigarette/Vaping Use: Never Used Second Hand Smoke Exposure: No service: No Current occupational status: retired Cognitive needs: No Hearing needs: No Vision needs: Yes Physical Exam Vital Signs: Last Vital Signs Pulse 92 03/30/25 09:30 BP 196/94 H 03/30/25 09:30 Pulse Ox 98 03/30/25 09:30 Oxygen Delivery Method Room Air 09/08/25 09:30 BMI result Body Mass Index 18.2 Assessment & Plan Assessment & Plan (1) Multinodular goiter (nontoxic): Code(s): E04.2 - Nontoxic multinodular goiter Category: Medical Plan: 79-year-old female with no family history of thyroid cancer with no personal history of head or neck radiation who is coming in today for initial evaluation of multinodular goiter. Thinks she was originally diagnosed 10 years ago? doesnt think she has ever had FNA. Ultrasound thyroid done 10/21/2024 showed the right side lobe is much larger than the left. The gland is heterogenous. Increased vascularity on the right. While the report does not identify any discrete nodules, and I look at the images myself she has multiple nodules on the right side, mostly almost a conglomerate of multiple nodules. I explained that it is common to have thyroid nodules. About 95% of the time these nodules are benign. However if the nodule is > 1 cm in size or suspicious on ultrasound then a fine need aspiration biopsy is recommended. We discussed that a FNAB involves 4-5 passes with a small gauge needle and material obtained is sent off for cytology.If the cytopathology is benign then the nodule will be followed annually with repeat ultrasounds. However if it is suspicious or malignant, we will need to discuss further management. Indeterminate cytology can be further investigated with repeat FNA, genetic testing or empiric lobectomy. Malignant cytology is managed with either lobectomy or total thyroidectomy. We discussed briefly that thyroid cancer is, in most patients, an indolent disease that does not affect mortality. At this point I discussed with the patient that I would like to take a look at the right side of her thyroid myself and do a biopsy of the largest nodule on the right side, however patient expressed that she is extremely scared of needles, and we discussed alternative options of ultrasound surveillance. At this point she expressed that she would just like to monitor this with ultrasound surveillance, even though we discussed everything in detail, she also did not demonstrate a very good understanding of what is going on during the visit, however did express that she did not want to pursue a biopsy. I did explain to her that the risk of malignancy is small, and even in worse case scenario if there is thyroid cancer, in most cases this is a slow growing indolent process, however there is a small likelihood that if she does have cancer and none of the nodules it could spread and cause . However at this time she would like to defer the biopsy. I also discussed with her that with such big goiters, we usually recommend surgery, however she does not have any compressive symptoms, and given her age, ultrasound surveillance is also a reasonable option with clinical monitoring for compression symptoms. Patient at this time expressed that she would prefer ultrasound monitoring. Notably she also has a history of hypothyroidism, managed by PCP. Currently on levothyroxine 75 mcg daily. She has a upcoming appointment with a repeat set of labs ordered. PCP to manage hypothyroidism. Plan: -ordered ultrasound of the thyroid to be done in February 2026 with follow up in March 2026 -patient to reach out sooner if she starts having any bothersome compressive symptoms -continue levothyroxine 75 mcg daily with PCP to continue manage hypothyroidism Plan I spent 45 minutes in reviewing the record, seeing the patient and documenting in the medical record. Orders: Orders US thyroid 03/01/26 E04.2 - Nontoxic multinodular goiter Patient Instructions: Do ultrasound of the thyroid in February 2026, someone will call you to schedule that Follow up in 2025 Coding Level of Care Code New Pt Level 4 (72643) Diagnoses Multinodular goiter (nontoxic) E04.2 Time Spent (min) 45
== END 2025-03-30 09:51 | disposition home or self-care (01) ==
LOC: HO.ENCR 09:29
PROVIDERS: PCP Internal Medicine; Visit Provider Student in an Organized Health Care Education/Training Program
DX: E04.2 Nontoxic multinodular goiter (principal)
CPT/HCPCS: 99204

== ENCOUNTER → 2025-03-30 09:28 | Outpatient (BNVA) | payer MEDICARE, SELFPAY | PROVIDERS: PCP Internal Medicine; Visit Provider Student in an Organized Health Care Education/Training Program | DX: E04.2 Nontoxic multinodular goiter (principal) | CPT/HCPCS: 99202 ==

== ENCOUNTER 2025-04-28 07:44 | Outpatient (REF) | payer MEDICARE, SELFPAY ==
[2025-04-28 07:56] LABS: MANUAL DIFF FLAG NO
[2025-04-28 08:27] LABS: Hematocrit 38.5 % (37.0-47.0); Hemoglobin 12.6 g/dl (12.0-16.0); Imm Gran Abs Auto 0.04 X10*3/uL (0.00-0.03); Imm Gran Pct Auto 0.7 % (0.0-0.4); Lymphocytes Absolute Auto 2.4 X10*3/uL (1.2-4.9); Mean Corpuscular HGB Conc 32.7 g/dl (31.0-35.0); Mean Corpuscular Hemoglobin 30.1 pg (27.0-33.0); Mean Corpuscular Volume 91.9 fL (80.0-98.0); NRBC Abs Auto 0.000 X10*3/uL (0.0-0.012); NRBC Pct Auto 0.0 /100WBC (0.0-0.2); Platelet Count 241 X10*3/uL (160-400); Red Blood Count 4.19 X10*6/uL (4.20-5.50); White Blood Count 6.1 X10*3/uL (4.8-10.8)
[2025-04-28 08:38] LABS: Appearance Urine Clear; Glucose Urine UA Negative (Negative); PH 7.5 (5.0-9.0); Specific Gravity - Urine <= 1.005 (1.005-1.025); UMIC TRIGGER UACC YES
[2025-04-28 09:16] LABS: Alanine Aminotransferase 27 U/L (0-31); Albumin Level 4.2 g/dL (3.5-5.0); Alkaline Phosphatase 61 U/L (39-117); Anion Gap 13 (12-20); Aspartate Amino Transferase 32 U/L (5-31); Blood Urea Nitrogen 21 mg/dL (9-16); Calcium 9.3 mg/dL (8.4-10.2); Carbon Dioxide 31 mmol/L (22-29); Chloride 104 mmol/L (96-108); Cholesterol 194 mg/dL (<200); Estimated Glomerular Filt Rate > 60; HDL Cholesterol 75 mg/dL (>40); Potassium 4.3 mmol/L (3.3-5.1); Sodium 144 mmol/L (135-145); Total Protein 7.8 g/dL (6.5-8.0); Triglycerides 64 mg/dL (<150)
[2025-04-28 09:26] LABS: Free T4 (Free Thyroxine) 0.97 ng/dL (0.71-1.85); Thyroid Stimulating Hormone 3.57 uIU/mL (0.32-4.0)
[2025-04-28 09:36] LABS: Folate 16.4 ng/mL (> or = 4.0); Vitamin B12 884 pg/mL (200-900)
== END 2025-04-28 07:45 | disposition home or self-care (01) ==
LOC: HO.LAB 07:44
PROVIDERS: PCP Internal Medicine; Visit Provider Internal Medicine
DX: E53.8 Deficiency of other specified B group vitamins (principal); R73.01 Impaired fasting glucose; E03.9 Hypothyroidism, unspecified; E78.00 Pure hypercholesterolemia, unspecified; D64.9 Anemia, unspecified; E55.9 Vitamin D deficiency, unspecified
CPT/HCPCS: 36415; 80053; 80061; 81001; 82306; 82607; 82746; 83036; 84439; 84443; 85025

== ENCOUNTER 2025-05-06 10:40 | Outpatient (AMB) | payer MEDICARE, SELFPAY ==
[2025-05-06 11:00] VITALS: BP 160/72; PULSE 80; O2SAT 98; BMI 18.0
--- NOTE | 2025-05-06 11:00 | A.OFFPC_ITS ---
Vital Signs 05/06/25 11:00 Height 5 ft 2 in Weight 98 lb 8 oz BMI 18.0 BP 160/72 H Blood Pressure Location Lt brachial Position Sitting Pulse 80 Pulse Source Pulse Oximeter Pulse Oximetry (%) 98 Oxygen Delivery Method Room Air Intake Visit Reasons: cough Director Advanced Required: No Accompanied by: Self / Same As Patient Allergies No Known Allergies Allergy (Verified 05/06/25 11:31) Medication List - Last Reconciled 05/06/25 by Tony Myers MD fluticasone propionate 50 mcg/actuation (Flonase Allergy Relief) 1 spray intranasal DAILY PRN 10 days levothyroxine 75 mcg PO DAILY 90 days loratadine 10 mg PO DAILY PRN 90 days magnesium oxide (MagOx) 400 mg PO DAILY 90 days Tobacco use date assessed: 05/06/25 Fall risk assessment: No Falls in past year Last assessed Fall Risk: 05/06/25 Dental Screening Dental Screen Date: 05/06/25 Did you have a dental visit in the last 12 months?: Yes Did you have a dental problem in the last 6 months where you did not have access to dental care?: No Was dental information given to patient?: Patient has dentist HPI cough HPI Details Patient comes in today for her follow up visit States that she has been experiencing increased allergy symptoms lately, with on and off non-productive coughing, watery eyes and on and off nasal drainage States that she is taking her allergy Rx (Fluticasone nasal spray and Loratadine) as needed with (+) relief of her symptoms She denies any fever or sore throat; denies any headaches or dizziness Denies any chest pains, no increased SOB No nausea/vomiting, no abdominal pain No change in bowel habits noted Needs her Magnesium tablets Rx refllled - states that this has helped her a lot with her leg cramps at night She had her follow up labs done last week - to discuss her results [facility] Medical History (Updated 05/06/25 @ 12:15 by Tony Myers MD) Impaired fasting glucose Multinodular goiter (nontoxic) Pure hypercholesterolemia Acquired hypothyroidism Surgical History History of cataract surgery (~08/2021) H/O hand surgery Family History Mother No problems noted. Father Arthritis Social History Housing: House Alcohol intake: never Patient Tobacco Use Status: Never used Tobacco e-Cigarette/Vaping Use: Never Used Second Hand Smoke Exposure: No service: No Current occupational status: retired Cognitive needs: No Hearing needs: No Vision needs: Yes Questionnaire PHQ-9 Over the last 2 weeks, how often have you been bothered by any of the following problems? 1. Little interest or pleasure in doing things: not at all 2. Feeling down, depressed, or hopeless: not at all 3. Trouble falling or staying asleep, or sleeping too much: not at all 4. Feeling tired or having little energy: not at all 5. Poor appetite or overeating: not at all 6. Feeling bad about yourself - or that you are a failure or have let yourself or your family down: several days 7. Trouble concentrating on things, such as reading the newspaper or watching television: not at all 8. Moving or speaking so slowly that other people could have noticed. Or the opposite - being so fidgety or restless that you have been moving around a lot more than usual: not at all 9. Thoughts that you would be better off or of hurting yourself in some way: not at all Total score: 1 Depression Screening Interpretation: Negative Depression Screening Done: Yes 86813 - PHQ-9 Billing: Yes Source: Developed by Drs. Humberto Sanders, Connie Mock, Boone Grossman and colleagues, with an educational percy from [employer]. Thrive Questionnaire Date Thrive assessed: 05/06/25 I am a: Patient What is your living situation today?: I have a steady place to live Within the past 12 months, did the food you bought not last and you didn't have the money to get more?: Never true Within the past 12 months, did you worry whether your food would run out before you got money to buy more?: Never true Do you have trouble paying for medicines?: No Do you have trouble getting transportation to medical appointments?: No Do you have trouble paying your heating and electricity bill?: No Do you have trouble taking care of your child, family member or friend?: No Do you have trouble with day-to-day activities such as bathing, preparing meals, shopping, managing finances, etc.?: No Are you currently unemployed and looking for a job?: Yes Are you interested in more education?: No Please select the resources that you would like help with: None Currently or been in a relationship where the following occur: No concerns reported THRIVE Score: 0 AUDIT C Alcohol Use Questionnaire (AUDIT-C) 1. How often do you have a drink containing alcohol?: Never 3. How often do you have six or more drinks on one occasion?: Never Total Score: 0 Score Reviewed/Action Taken: Yes NATHALIE-7 AMB Questionnaire NATHALIE-7 Date NATHALIE - 7 assessed: 10/31/24 Feeling nervous, anxious, or on edge: 1 = Several days Not being able to stop or control worryin = Not at all Worrying too much about different things: 0 = Not at all Trouble relaxin = Not at all Being so restless that it is hard to sit still: 0 = Not at all Becoming easily annoyed or irritable: 0 = Not at all Feeling afraid as if something awful might happen: 0 = Not at all Total NATHALIE-7 score (0-4 normal; 5-9 mild; 10-14 moderate; 15-21 severe): 1 Source: Developed by Drs. Humberto Sanders, Connie Mock, Boone Grossman and colleagues, with an educational percy from [employer]. Review of Systems Const Denies chills, Denies fatigue, Denies fever(s) and Denies headache(s) ENT Denies dysphagia, Denies dizziness, Denies otalgia, Denies headache(s), Denies neck pain, Denies odynophagia and Denies sore throat Card Denies chest pain, Denies palpitations and Denies dyspnea Resp Denies chest congestion, Denies cough and Denies dyspnea GI Denies abdominal pain, Denies constipation, Denies dysphagia, Denies heartburn, Denies diarrhea, Denies nausea, Denies odynophagia and Denies vomiting Denies difficulty voiding, Denies nocturia, Denies dysuria and Denies urinary urgency Musc Denies back pain, Denies muscle cramps (improved with oral Magnesium supplements) and Denies neck pain Skin/Breast Denies rash Neuro Denies dizziness and Denies headache(s) Psych Reports anxiety Endo Denies fatigue and Denies palpitations Physical exam (Primary Care) Vital Signs: Last Vital Signs Pulse 80 05/06/25 11:00 BP 160/72 H 05/06/25 11:00 Pulse Ox 98 05/06/25 11:00 Oxygen Delivery Method Room Air 05/06/25 11:00 BMI result Body Mass Index 18.0 Tobacco/Smoking Status: Tobacco use Status Tobacco use date assessed 05/06/25 05/06/25 11:05 Patient Tobacco Use Status Never used Tobacco 05/06/25 11:05 e-Cigarette/Vaping Use Never Used 05/06/25 11:05 PHQ-9: PHQ-9 Score PHQ-9: Total score 1 05/06/25 11:05 Depression Screening Interpretation: Negative Thrive Assessment: Date of Thrive Assessment Date Thrive assessed 10/31/24 05/06/25 11:05 Currently or been in a relationship where the following occur: No concerns reported Const General: no acute distress and alert HENMT Ears: Abnormal EAC present cerumen impaction bilateral and unable to visualize TM bilaterally Throat: Yes posterior oropharynx normal and Yes tonsils normal (no TP congestion) Neck Neck: Yes supple and No lymphadenopathy Thyroid: lateral enlargement on the right and nontender Resp Auscultation: clear to auscultation bilaterally, no crackles, no rales and no wheezes Cardio Rate: regular rate Rhythm: regular rhythm Heart sounds: no murmurs GI Palpation (GI): Soft to palpation and nontender Auscultation: normal bowel sounds General: Yes no CVA tenderness Back/Spine/Pelvis Back: no CVA tenderness Thoracic/Lumbar Spine: No lumbar spinal tenderness Skin Rashes: no rashes Extrem General: Yes no clubbing, cyanosis or edema Results Reviewed Results Reviewed: Laboratory Tests 04/28/25 04/28/25 07:50 07:54 WBC 6.1 Hgb 12.6 Hct 38.5 Plt Count 241 Sodium 144 Potassium 4.3 Creatinine 0.71 Estimated GFR > 60 Fasting Glucose 109 H Hemoglobin A1c % 6.4 H Calcium 9.3 AST 32 H ALT 27 Triglycerides 64 Cholesterol 194 LDL Cholesterol, Calc 107 H HDL Cholesterol 75 Vitamin B12 884 25-OH Vitamin D Total 41.8 TSH 3.57 Free T4 0.97 Ur Specific [place] <= 1.005 Urine Protein Negative Urine Glucose (UA) Negative Urine Blood Negative Urine Nitrite Negative Ur Leukocyte Esterase Trace H Coding Level of Care Code Est Pt Level 4 (00415) Diagnoses Multinodular goiter (nontoxic) E04.2 Acquired hypothyroidism E03.9 Pure hypercholesterolemia E78.00 Impaired fasting glucose R73.01 Elevated blood pressure reading in office without diagnosis of hypertension R03.0 Leg cramping R25.2 Allergic rhinitis, unspecified seasonality, unspecified trigger J30.9 Allergic rhinitis trigger: unspecified Allergic rhinitis seasonality: unspecified Impacted cerumen of both ears H61.23 Anxiety F41.9 Additional Codes PHQ-9 - 89634 - PHQ-9 Billing: Yes ([id number]) Assessment & Plan Assessment & Plan (1) Multinodular goiter (nontoxic): Code(s): E04.2 - Nontoxic multinodular goiter Category: Medical Plan: Thyroid ultrasound done back on 10/21/2024 revealed findings consistent with multinodular goiter with no discrete nodules identified Patient was referred to endocrinology for further evaluation and management and was seen by Dr. [place] last month Patient declined FNA Bx and prefers to continue with yearly ultrasound surveillance going forward - she will be getting a repeat thyroid US done in March 2026 and will follow up with endocrinology after her sonogram is done (2) Acquired hypothyroidism: Code(s): E03.9 - Hypothyroidism, unspecified Category: Medical Plan: Her TFTs came back normal on her recent labs; patient is clinically euthyroid Continue Levothyroxine 75 mcg QD Will recheck her TFTs in 6 months for follow up (3) Pure hypercholesterolemia: Code(s): E78.00 - Pure hypercholesterolemia, unspecified Category: Medical Plan: Results of her labs done last week reviewed and discussed with patient Reinforced low cholesterol diet Recheck her labs and fasting lipids in 6 months for follow-up (4) Impaired fasting glucose: Code(s): R73.01 - Impaired fasting glucose Category: Medical Plan: Patient is advised that her HgbA1c on her recent labs is at 6.4%, which puts her on the cusp of diabetes Reinforced low calorie/low carb diet She admits that she eats a lot of bread frequently and is instructed to start cutting back on this and on her carb intake in general Will recheck her FBS and HgbA1c in 6 months for follow up (5) Elevated blood pressure reading in office without diagnosis of hypertension: Code(s): R03.0 - Elevated blood-pressure reading, without diagnosis of hypertension Category: Medical Plan: Patient's blood pressure in the office today is again elevated at 160/72 mm but patient states that her blood pressure earlier this morning at home was around 120/80 just before she left for the office Her BP log in the past has showed that her systolic BP readings are consistently in the 120 mm range She is again advised that she most likely has white coat syndrome and is reminded to continue monitoring her BP regularly Reinforced low sodium diet (6) Leg cramping: Code(s): R25.2 - Cramp and spasm Category: Medical Plan: Patient states that her leg symptoms have been relieved significantly with oral Magnesium Oxide 400 mg QD - Rx refilled (7) Allergic rhinitis: Code(s): J30.9 - Allergic rhinitis, unspecified Category: Medical Qualifiers: Allergic rhinitis trigger: unspecified Allergic rhinitis seasonality: unspecified Qualified Code(s): J30.9 - Allergic rhinitis, unspecified Plan: Continue Fluticasone 50 mcg nasal spray QD PRN and Loratadine 10 mg QD PRN (8) Impacted cerumen of both ears: Code(s): H61.23 - Impacted cerumen, bilateral Category: Medical Plan: Will start patient on Debrox ear drops in both ears She is also instructed to do self-irrigation of her ears while she is in the shower regularly to help clear out the cerumen in her ears gradually and if she is not able to do much on her own, she can then call the office later on for an appointment for ear irrigation (9) Anxiety: Code(s): F41.9 - Anxiety disorder, unspecified Category: Medical Plan: Patient states that she continues to experience anxiety often, with increased stress at home Advised again that she may benefit from a referral for counseling for her anxiety or some Rx that she can take as needed - patient still does not wish to take any Rx at this time but she will call if she changes her mind about this Plan Follow up in 6 months Orders: Orders Free T4 (Free Thyroxine) 6 Months E03.9 - Hypothyroidism, unspecified Thyroid Stimulating Hormone 6 Months E03.9 - Hypothyroidism, unspecified Lipid Panel 6 Months E78.00 - Pure hypercholesterolemia, unspecified Hemoglobin A1c 6 Months E11.9 - Type 2 diabetes mellitus without complications Comprehensive [place]. Panel Fast 6 Months E78.00 - Pure hypercholesterolemia, unspecified Complete Blood Count Auto Diff 6 Months D64.9 - Anemia, unspecified Medications: New carbamide peroxide 6.5% (Debrox) 5 drps otic (ears) DAILY 15 mL 0RF 7 days Refilled magnesium oxide (MagOx) 400 mg PO DAILY 90 tabs 3RF 90 days
== END 2025-05-06 11:39 | disposition home or self-care (01) ==
LOC: HO.HMCH 10:41
PROVIDERS: PCP Internal Medicine; Visit Provider Internal Medicine
DX: E04.2 Nontoxic multinodular goiter (principal); E03.9 Hypothyroidism, unspecified; E78.00 Pure hypercholesterolemia, unspecified; R73.01 Impaired fasting glucose; R03.0 Elevated blood-pressure reading, without diagnosis of hypertension; R25.2 Cramp and spasm; J30.9 Allergic rhinitis, unspecified; H61.23 Impacted cerumen, bilateral; F41.9 Anxiety disorder, unspecified

== ENCOUNTER → 2025-05-06 10:40 | Outpatient (BNVA) | payer MEDICARE, SELFPAY | PROVIDERS: PCP Internal Medicine; Visit Provider Internal Medicine | DX: E04.2 Nontoxic multinodular goiter (principal); E03.9 Hypothyroidism, unspecified; E78.00 Pure hypercholesterolemia, unspecified; R73.01 Impaired fasting glucose; R03.0 Elevated blood-pressure reading, without diagnosis of hypertension; R25.2 Cramp and spasm; J30.9 Allergic rhinitis, unspecified; H61.23 Impacted cerumen, bilateral; F41.9 Anxiety disorder, unspecified | CPT/HCPCS: 96127; 99212 ==